=== PATIENT | female | born 1980 | race Caucasian/White ===

== ENCOUNTER 2018-03-26 13:05 | Emergency (ER) | payer BC, OTHER ==
[~2018-03-26] VITALS: Ht 170.2 cm; Wt 147.7 kg
[2018-03-26] MEDS ORDERED: DEXT10CA5 (13:10)
[2018-03-26] MEDS ORDERED: NS 1,000 ML IV SCH (13:27)
[2018-03-26] MEDS ORDERED: ONDANSETRON 4MG/2ML VIAL (J2405) IV ONE (13:30)
[2018-03-26 13:51] LABS: BASO % 0.3 % (0.0-1.0); EOS # 0.1 10^3/uL (0.0-0.50); EOS % 0.8 % (0.0-3.0); HEMATOCRIT 35.5 % (36.0-47.0); HEMOGLOBIN 11.5 g/dl (12.0-15.5); LYMPH # 1.8 10^3/uL (1.5-4.5); LYMPH % 12.2 % (24.0-44.0); MEAN CORPUSCULAR HEMOGLOBIN 27.4 pg (27.0-33.0); MEAN CORPUSCULAR HGB CONC 32.4 g/dl (32.0-36.5); MEAN CORPUSCULAR VOLUME 84.5 fl (80.0-96.0); MONO # 0.8 10^3/uL (0.0-0.8); MONO % 5.8 % (0.0-5.0); NEUTROPHILS # 11.6 10^3/uL (1.8-7.7); NEUTROPHILS % 80.5 % (36.0-66.0); PLATELET COUNT, AUTOMATED 395 10^3/uL (150-450); WHITE BLOOD COUNT 14.4 10^3/uL (4.0-10.0)
[2018-03-26 14:17] LABS: HCG, SERUM QUALITATIVE NEGATIVE (NEGATIVE)
[2018-03-26 14:26] LABS: ALBUMIN 3.3 GM/DL (3.2-5.2); ALT/SGPT 23 U/L (12-78); BILIRUBIN,DIRECT < 0.1 MG/DL (0.0-0.2); BILIRUBIN,TOTAL 0.3 MG/DL (0.2-1.0); BLOOD UREA NITROGEN 11 MG/DL (7-18); CALCIUM LEVEL 8.9 MG/DL (8.5-10.1); CARBON DIOXIDE LEVEL 30 MEQ/L (21-32); CHLORIDE LEVEL 104 MEQ/L (98-107); CREATININE FOR GFR 0.99 MG/DL (0.55-1.30); GLOMERULAR FILTRATION RATE > 60.0 (>60); GLUCOSE, FASTING 115 MG/DL (70-100); LIPASE 73 U/L (73-393); POTASSIUM SERUM 4.3 MEQ/L (3.5-5.1); SODIUM LEVEL 140 MEQ/L (136-145)
[2018-03-26] MEDS ORDERED: MORPHINE 4 MG/ML 1ML VIAL/SYRINGE (J2270) IV PRN (14:45)
[2018-03-26 15:27] VITALS: BP 194/100
[2018-03-26] MEDS ORDERED: PERC5TAB12 PO (15:28)
[2018-03-26] MEDS ORDERED: FLOM0.4C39 PO (15:29)
--- NOTE | 2018-03-26 15:54 | REP ---
Clinical: Acute right flank pain. Technique: Axial noncontrast images from the lung bases to the pubic symphysis with coronal and sagittal re-formations. Findings: Mild acute right-sided obstructive uropathy includes edematous enlargement to the right kidney with hydroureteronephrosis and periureteral stranding to the level of the mid/distal ureter where a 4 mm obstructing calculus is identified (images [id number]).Right renal hypodensity likely represents cyst. The left kidney demonstrates 2 mm nonobstructing renal calculus. Bladder is partially collapsed and grossly normal in appearance. Liver, spleen, pancreas, gallbladder, and bilateral adrenal glands are normal for noncontrast evaluation. The enteric system is without obstruction or acute inflammatory process. Small appendicolith identified in the mid appendix. Pelvis demonstrates partially collapsed normal bladder and normal uterus / adnexa. No ascites. No free air. No adenopathy. Abdominal aorta without aneurysm. No scalar skeletal structures are intact. Impression: 1. Acute right-sided obstructive uropathy with a 4 mm calculus in the mid/distal ureter. 2. Subtle right renal hypodensity likely represents cyst. 3. A 2 mm nonobstructing left renal calculus noted. Electronically Signed by Pato Morse MD 03/26/2018 03:46 P
[2018-03-26] MEDS ORDERED: ZOFR4TAB14 PO (16:11)
[2018-03-26] MEDS ORDERED: NORCOTAB PO (16:12)
[2018-03-26] MEDS ORDERED: KETO10TAB PO (16:13)
== END 2018-03-26 16:22 | disposition home or self-care (01) ==
LOC: M ED 13:05
DX: N20.1 Calculus of ureter (principal); I10 Essential (primary) hypertension; J45.909 Unspecified asthma, uncomplicated; Z79.899 Other long term (current) drug therapy; Z88.6 Allergy status to analgesic agent; Z88.0 Allergy status to penicillin; Z88.5 Allergy status to narcotic agent
CPT/HCPCS: 12001; 74176; 80048; 80076; 81001; 83690; 84703; 85025; 87086; 96374; 99284; J2270